=== PATIENT | female | born 1995 | race Caucasian/White ===

== ENCOUNTER 2017-02-25 00:31 | Emergency (ER) | payer BC ==
[~2017-02-25] VITALS: Ht 170.2 cm; Wt 90.9 kg
[2017-02-25 00:36] VITALS: Ht 170.2 cm; Wt 90.9 kg
[2017-02-25] MEDS ORDERED: ACETAMINOPHEN 500 MG TAB PO STA (00:53)
[2017-02-25] MEDS ORDERED: KETOROLAC TROMETHAMINE 30 MG/ML VIAL IV STA (00:53)
[2017-02-25] MEDS ORDERED: SODIUM CHLORIDE 0.9% 1000ML 1,000 ML, SODIUM CHLORIDE 0.9% 1000ML 1,000 ML IV ONE (01:00)
[2017-02-25 01:24] LABS: BASO % 0.3 %; BASO ABS # 0.02 K/uL (0-0.2); COMPLETE YES; EOS % 0.6 %; HEMATOCRIT 38.3 % (37-47); IG% 0.1 %; LYMPH % 11.6 %; LYMPH ABS # 0.79 K/uL (1.2-3.4); MEAN CELL VOLUME 83.6 fL (80-100); MEAN CORPUSCULAR HEMOGLOBIN 27.9 pg (25-34); MEAN CORPUSCULAR HGB CONC 33.4 g/dl (32-36); MEAN PLATELET VOLUME 9.4 fL (7.4-10.4); MONO % 6.3 %; NEUT % 81.1 %; PLATELET COUNT 192 K/uL (130-400); RED BLOOD COUNT 4.58 M/uL (4.2-5.4)
[2017-02-25 01:27] LABS: PREG INTERNAL NEGATIVE QC NEG CLEAR BACKGROUND; PREG INTERNAL POSITIVE QC POS CONTROL LINE
[2017-02-25 01:29] LABS: URINE APPEARANCE CLEAR (CLEAR); URINE BILIRUBIN NEG (NEG); URINE COLOR YELLOW; URINE EPITHELIAL CELL AUTO >30 /lpf (0-5); URINE NITRITE NEG (NEG); URINE SPECIFIC GRAVITY 1.017 (1.000-1.030); UROBILINOGEN NEG (NEG); ZZUR CULT IF INDIC CLEAN CATCH YES
[2017-02-25 01:34] LABS: MANUAL MICROSCOPIC REQUIRED? NO; REVIEW REQ? YES
[2017-02-25 01:44] LABS: CALCIUM 8.7 mg/dl (8.5-10.1); CREATININE 0.84 mg/dl (0.60-1.20); POTASSIUM 3.3 mmol/L (3.5-5.1)
[2017-02-25 01:47] LABS: ALB/GLOB RATIO 0.9 (0.9-2)
[2017-02-25 03:32] VITALS: BP 108/70; PULSE 82; TEMP 36.9; O2SAT 97
--- NOTE | 2017-02-25 05:52 | EMERGENCY ROOM VISIT NOTE ---
History First contact with patient: 00:45 Chief Complaint: FEVER Stated Complaint: FEVER, SEVERE PAZ, CONGESTION History of Present Illness The patient is a 21 year old female who presents to the Emergency Room with complaints of fever symptoms off and on for the past 7-10 days. The patient has had several recurrent sinus infections over the past few months. She went to an urgent care clinic 2 days ago after being sick for one week, and was started on Omnicef. The patient has taken 3 doses of the medication and continues to run high fevers. She states her fever was greater than 104F tonight, prompting her presentation. She has intermittently been taking Advil and Tylenol, which does improve her fever. The patient does not have known exposure to disease. She has had an intermittent cough but no distinct chest pain, chest tightness, or abdominal pain. No difficulty using the bathroom. She rates her overall discomfort an 8/10. Review of Systems More than 10 systems were reviewed and otherwise negative with the exception of history of present illness. Past Medical/Surgical History No chronic medical disease Family History No pertinent family history Social History Smoking Status: Current Every Day Smoker Occupation Status: [employer] student Physical Exam Vital Signs Date Time Temp Pulse Resp B/P (MAP) Pulse Ox O2 Delivery O2 Flow Rate FiO2 02/25/17 03:32 36.9 82 18 108/70 97 Room Air 02/25/17 00:36 38.1 140 20 131/71 96 Room Air Physical Exam VITALS: Vitals are noted on the nurse's note and reviewed by myself. Vital signs stable. GENERAL: Well-developed, well-nourished, female, who is in no acute distress and resting comfortably. Patient is cooperative with the examination. HEAD: Normocephalic atraumatic. EARS: External ear normal. External auditory canals clear, tympanic membranes pearly stacy without erythema or effusion bilaterally. EYES: Pupils equal round and reactive to light and accommodation. Conjunctivae without injection, sclerae without icterus. Extraocular movements intact. NOSE: Patent, turbinates without inflammation or discharge. MOUTH: Mucous membranes moist. Tonsils are not enlarged. Pharynx with purulent drainage in the posterior pharynx NECK: Supple without nuchal rigidity. No lymphadenopathy. No thyromegaly. Cervical spine is nontender. HEART: Regular rate and rhythm without murmurs gallops or rubs. LUNGS: Clear to auscultation bilaterally without wheezes, rales or rhonchi. No retractions or accessory muscle use. Medical Decision & Procedures Laboratory Results 02/25/17 01:07 Red Blood Count 4.58, Mean Corpuscular Volume 83.6, Mean Corpuscular Hemoglobin 27.9, Mean Corpuscular Hemoglobin Concent 33.4, Mean Platelet Volume 9.4, Neutrophils (%) (Auto) 81.1, Lymphocytes (%) (Auto) 11.6, Monocytes (%) (Auto) 6.3, Eosinophils (%) (Auto) 0.6, Basophils (%) (Auto) 0.3, Neutrophils # (Auto) 5.51, Lymphocytes # (Auto) 0.79, Monocytes # (Auto) 0.43, Eosinophils # (Auto) 0.04, Basophils # (Auto) 0.02 02/25/17 01:07 Test 02/25/17 01:07 02/25/17 01:10 02/25/17 01:42 White Blood Count 6.80 K/uL (4.8-10.8) Red Blood Count 4.58 M/uL (4.2-5.4) Hemoglobin 12.8 g/dL (12.0-16.0) Hematocrit 38.3 % (37-47) Mean Corpuscular Volume 83.6 fL (80-100) Mean Corpuscular Hemoglobin 27.9 pg (25-34) Mean Corpuscular Hemoglobin Concent 33.4 g/dl (32-36) Platelet Count 192 K/uL (130-400) Mean Platelet Volume 9.4 fL (7.4-10.4) Neutrophils (%) (Auto) 81.1 % Lymphocytes (%) (Auto) 11.6 % Monocytes (%) (Auto) 6.3 % Eosinophils (%) (Auto) 0.6 % Basophils (%) (Auto) 0.3 % Neutrophils # (Auto) 5.51 K/uL (1.4-6.5) Lymphocytes # (Auto) 0.79 K/uL (1.2-3.4) Monocytes # (Auto) 0.43 K/uL (0.11-0.59) Eosinophils # (Auto) 0.04 K/uL (0-0.5) Basophils # (Auto) 0.02 K/uL (0-0.2) RDW Standard Deviation 38.8 fL (36.4-46.3) RDW Coefficient of Variation 12.8 % (11.5-14.5) Immature Granulocyte % (Auto) 0.1 % Immature Granulocyte # (Auto) 0.01 K/uL (0.00-0.02) Anion Gap 9.0 mmol/L (3-11) Est Creatinine Clear Calc Drug Dose 122.6 ml/min Estimated GFR () 115.1 Estimated GFR (Non- 99.4 BUN/Creatinine Ratio 17.0 (10-20) Calcium Level 8.7 mg/dl (8.5-10.1) Magnesium Level 2.0 mg/dl (1.8-2.4) Total Bilirubin 0.4 mg/dl (0.2-1) Aspartate Amino Transf (AST/SGOT) 12 U/L (15-37) Alanine Aminotransferase (ALT/SGPT) 19 U/L (12-78) Alkaline Phosphatase 57 U/L (45-117) Total Protein 7.7 gm/dl (6.4-8.2) Albumin 3.7 gm/dl (3.4-5.0) Globulin 4.0 gm/dl (2.5-4.0) Albumin/Globulin Ratio 0.9 (0.9-2) Monoscreen NEG (NEG) Urine Color YELLOW Urine Appearance CLEAR (CLEAR) Urine pH 5.0 (4.5-7.5) Urine Specific [place] 1.017 (1.000-1.030) Urine Protein NEG (NEG) Urine Glucose (UA) NEG (NEG) Urine Ketones NEG (NEG) Urine Occult Blood 2+ (NEG) Urine Nitrite NEG (NEG) Urine Bilirubin NEG (NEG) Urine Urobilinogen NEG (NEG) Urine Leukocyte Esterase SMALL (NEG) Urine WBC (Auto) 1-5 /hpf (0-5) Urine RBC (Auto) 0-4 /hpf (0-4) Urine Hyaline Casts (Auto) 1-5 /lpf (0-5) Urine Epithelial Cells (Auto) >30 /lpf (0-5) Urine Bacteria (Auto) NEG (NEG) Urine Yeast (Auto) (NONE PRSENT) Urine Test NEG (NEG) Influenza Type A Antigen Neg for Influ A (NEG) Influenza Type B Antigen Neg for Influ B (NEG) Bedside Lactic Acid Venous 0.60 mmol/L (0.90-1.70) Medications Administered Medications (Trade) Dose Ordered Sig/Miles Route Start Time Stop Time Status Last Admin Dose Admin Sodium Chloride/ Sodium Chloride 2,000 ml @ 999 mls/hr Q2H1M ONCE IV 02/25/17 01:00 02/25/17 03:00 DC 02/25/17 01:00 999 MLS/HR Ketorolac Tromethamine (Toradol Inj) 30 mg NOW STAT IV 02/25/17 00:53 02/25/17 00:55 DC 02/25/17 01:17 30 MG Acetaminophen (Tylenol Tab) 1,000 mg NOW STAT PO 02/25/17 00:53 02/25/17 00:55 DC 02/25/17 01:18 1,000 MG ED Course Physical exam and history were performed. Nursing notes, EMR, and Medication List were personally reviewed. Patient appears to have fever and cough for the past several days. She has an existing diagnosis of sinusitis and recently started on Omnicef. IV access was established and labs were obtained. The patient was hydrated and medicated as above. Chest x-ray was performed. The patient does not have significantly elevated white blood cell count, anemia , bandemia, or gross electrolyte imbalance. Lactic acid was negative. Influenza and mono was both negative as well. She does not have signs of UTI. Chest x-ray was reviewed by myself and my attending and does not show obvious acute process with radiology read pending. On reevaluation the patient had significant improvement of her symptoms. She was able to rest comfortably in her emergency department bed. I suspect that her symptoms are most consistent with acute sinusitis as she does have purulent drainage in the posterior pharynx. This would also explain her cough and fever. The patient will be given instructions to use ibuprofen and Tylenol on a more regular basis. She is to continue the Omnicef as I feel this is appropriate. The patient is to follow with her primary care physician in the next few days. She was invited back to ER with any new, worsening, or concerning symptoms. The chart was completed utilizing [employer] Voice Recognition Software. Grammatical errors, random word insertions, pronoun errors, and incomplete sentences are an occasional consequence of this system due to software limitations, ambient noise, and hardware issues. Any formal questions or concerns about the content, text, or information contained within the body of this dictation should be directly addressed to the provider for clarification. . Medical Decision Differential diagnosis: Etiologies such as viral syndrome, otitis, pharyngitis, pneumonia, influenza, meningitis, urinary tract infection, sepsis, bacteremia, as well as others were entertained. Medication Reconcilliation Current Medication List: was personally reviewed by me Blood Pressure Screening Patient's blood pressure: Normal blood pressure Impression Primary Impression: Acute sinusitis Additional Impression: Fever Departure Information Dispostion Home / Self-Care Condition GOOD Forms HOME CARE DOCUMENTATION FORM, School Instructions, Additional Instructions: Patient was seen and evaluated today in the emergency department fo medical care. Return to class and 02/26/2017. Please excuse. IMPORTANT VISIT INFORMATION Patient Instructions [facility] Additional Instructions You were seen and evaluated today on an emergency basis only. This is not a substitute for, or an effort to provide, complete comprehensive medical care. It is not possible to recognize and treat all injuries or illnesses in a single emergency department visit. For this reason it is recommended that you followup with [facility] or your primary care physician in the next few days for recheck of your condition. For baseline pain relief you may alternate ibuprofen and acetaminophen every 4 hours for pain control. Take 600 mg ibuprofen (Advil) and then 4 hours later take 1000 mg acetaminophen (Tylenol). Do not take more than 3000 mg acetaminophen in a single day. Continue Omnicef as previously prescribed. You are welcome to return to the emergency department anytime with new, worsening, or concerning symptoms. School Instructions Additional School Instructions: Patient was seen and evaluated today in the emergency department for medical care. Return to class and 02/26/2017. Please excuse. Problem Qualifiers
--- NOTE | 2017-02-25 07:31 | DIAGNOSTIC IMAGING REPORT ---
CHEST 2 VIEWS ROUTINE CLINICAL HISTORY: Fever. Cough. COMPARISON STUDY: No previous studies for comparison. FINDINGS: The cardiac and mediastinal contours are normal. There is no evidence of focal pulmonary consolidation. There is no evidence of failure. No pleural effusions are visualized.[ IMPRESSION: No active disease in the chest. Electronically signed by: Charanjit العلي M.D. 02/25/2017 6:33 AM Dictated Date/Time: 02/25/2017 6:33 AM
== END 2017-02-25 03:46 | disposition home or self-care (01) ==
LOC: C.EDB 00:33
DX: J01.90 Acute sinusitis, unspecified (principal); R50.9 Fever, unspecified; F17.210 Nicotine dependence, cigarettes, uncomplicated

== ENCOUNTER → 2017-07-09 | Outpatient (CLI) | payer OTHER ==
[2017-07-09 16:44] LABS: HEMATOCRIT 39.9 % (37-47); HEMOGLOBIN 13.3 g/dL (12.0-16.0); MEAN CELL VOLUME 85.1 fL (80-100); MEAN CORPUSCULAR HEMOGLOBIN 28.4 pg (25-34); MEAN CORPUSCULAR HGB CONC 33.3 g/dl (32-36); MEAN PLATELET VOLUME 9.9 fL (7.4-10.4); PLATELET COUNT 241 K/uL (130-400); RED CELL DISTRIBUTION WIDTH CV 13.1 % (11.5-14.5); RED CELL DISTRIBUTION WIDTH SD 40.4 fL (36.4-46.3); WHITE BLOOD COUNT 7.98 K/uL (4.8-10.8)
== END | disposition home or self-care (01) ==
LOC: C.LAB1850 15:14
PROVIDERS: ATTEND Physician Assistant
DX: N92.0 Excessive and frequent menstruation with regular cycle (principal)

== ENCOUNTER → 2017-07-16 | Outpatient (CLI) | payer OTHER ==
--- NOTE | 2017-07-16 14:58 | MAMMOGRAPHY REPORT ---
ULTRASOUND OF RIGHT BREAST: 07/16/2017 CLINICAL HISTORY: The patient reports a palpable lump and associated pain in the right breast for jaqui roximately 6 weeks. The lump has decreased in size and is less painful than when she first felt it. COMPARISON: No prior exams were available for comparison. TECHNIQUE: Real-time targeted ultrasound of the right breast was performed. FINDINGS: Real-time, high-resolution targeted ultrasound was performed of the area of the tender pal pable lump pointed out by the patient, in the right breast at approximately 7:00, 5 cm from the nippl e. Sonographically normal tissue is seen in this region, without evidence of a mass or other suspici ous sonographic abnormality. IMPRESSION: ACR BI-RADS CATEGORY 1: NEGATIVE No suspicious sonographic abnormality at the site of the palpable right breast lump pointed out by th e patient. There is no sonographic evidence of malignancy. Recommend clinical follow-up The patient was verbally notified of the results. Dione Reed M.D. ah/:07/16/2017 08:20:39 [employer] Cadet: Shweta FRIEND(Isis)(Leonela), [facility] letter sent: Normal 1/2 BI-RADS Code: ACR BI-RADS Category 1: Negative
== END ==
LOC: C.MAMM 08:05
PROVIDERS: ATTEND Physician Assistant
DX: N63.10 Unspecified lump in the right breast, unspecified quadrant (principal)

== ENCOUNTER → 2017-07-23 | Outpatient (CLI) | payer OTHER | END | disposition home or self-care (01) | LOC: C.PAPS 09:53 | PROVIDERS: ATTEND Physician Assistant | DX: Z01.419 Encounter for gynecological examination (general) (routine) without abnormal findings (principal) ==

== ENCOUNTER → 2017-07-23 | Outpatient (CLI) | payer OTHER | END | disposition home or self-care (01) | LOC: C.LABSPEC 17:40 | PROVIDERS: ATTEND Physician Assistant | DX: Z01.419 Encounter for gynecological examination (general) (routine) without abnormal findings (principal) ==